=== PATIENT | female | born 1960 | race American Indian/Alaskan Native ===

== ENCOUNTER 2017-10-22 11:28 | Emergency (ER) | payer OTHER, MEDICARE ==
[2017-10-22 20:51] VITALS: BP 171/109
[2017-10-22] MEDS ORDERED: TORADOL IM ONE (21:33)
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
[2017-10-22] MEDS ORDERED: TORADOL ONE (21:58)
== END 2017-10-22 22:09 | disposition home or self-care (01) ==
LOC: ED 11:28
DX: S39.012A Strain of muscle, fascia and tendon of lower back, initial encounter (principal); S16.1XXA Strain of muscle, fascia and tendon at neck level, initial encounter; I10 Essential (primary) hypertension; R56.9 Unspecified convulsions; Z88.0 Allergy status to penicillin; F17.200 Nicotine dependence, unspecified, uncomplicated; V43.52XA Car driver injured in collision with other type car in traffic accident, initial encounter; Y93.89 Activity, other specified; Y92.89 Other specified places as the place of occurrence of the external cause; Y99.8 Other external cause status
CPT/HCPCS: 96372; 99282; J1885

== ENCOUNTER 2018-05-16 10:40 | Emergency (ER) | payer MEDICARE ==
[2018-05-16 13:09] LABS: Basophils # (Auto) 0.1 K/mm3 (0.0-0.1); Basophils % (Auto) 0.6 % (0.0-1.8); Eosinophils # (Auto) 0.3 K/mm3 (0.0-0.4); Eosinophils % (Auto) 2.3 % (0.0-4.3); Hematocrit 45.2 % (30.3-42.9); Hemoglobin 15.2 gm/dl (10.1-14.3); Lymphocytes # (Auto) 3.1 K/mm3 (1.2-5.4); Mean Corpuscular HGB Conc 34 % (30-34); Mean Corpuscular Hemoglobin 30 pg (28-32); Mean Corpuscular Volume 89 fl (79-97); Monocytes % (Auto) 8.9 % (0.0-7.3); Platelet Count 203 K/mm3 (140-440); Red Blood Count 5.08 M/mm3 (3.65-5.03)
[2018-05-16 13:43] LABS: BUN/Creatinine Ratio 13; Blood Urea Nitrogen 10 mg/dL (7-17); Calcium 10.2 mg/dL (8.4-10.2); Hemolysis Index 3
[2018-05-16] MEDS ORDERED: TORADOL IM ONE (14:53)
[2018-05-16] MEDS ORDERED: MUCINEX ER PO ONE (14:54)
[2018-05-16] MEDS ORDERED: NORCO 5/325 PO ONE (14:54)
[2018-05-16] MEDS ORDERED: TESSALON PERLES PO ONE (14:54)
[2018-05-16] MEDS ORDERED: ZITHROMAX PO ONE (14:54)
[2018-05-16 17:20] VITALS: BP 117/67
--- NOTE | 2018-05-16 17:27 | Emergency Department Report ---
HPI - General Chief Complaint: Chest Pain Time Seen by Provider: 05/16/18 13:55 - HPI HPI: The patient is a 57-year-old female who presents for evaluation of chest pain. The patient reports chest pain with coughing for the past 5 days, aching quality , again exacerbated with coughing, relieved at rest, moderate in severity, right -sided. She has experienced a nocturnal cough for the same duration. She admits to tobacco use as well. The patient denies fever, neck pain, parasthesias , dyspnea, hemoptysis, palpitations, dizziness, syncope, unilateral leg swelling, calf muscle pain. Patient also denies cocaine or other stimulant use , history of DVT or PE, recent immobilization, or history of cancer. ED Past Medical Hx - Past Medical History Previous Medical History?: Yes Hx Hypertension: Yes Hx Seizures: Yes Additional medical history: sacroiliac joint disease, arthritis in hands and knees - Surgical History Past Surgical History?: Yes Additional Surgical History: fibroid tumors removed - Social History Smoking Status: Current Every Day Smoker Substance Use Type: None - Medications Home Medications: Home Medications Medication Instructions Recorded Confirmed Last Taken Type Topiramate [Topamax] 25 mg PO BID 08/26/13 10/22/17 1 Day Ago History ~10/21/17 Carvedilol [Coreg] 1 tab PO DAILY 07/03/14 10/22/17 1 Day Ago History ~10/21/17 HYDROcodone/APAP 10-325 [[place] 1 each PO Q6HR PRN #20 tablet 07/03/14 Unknown Rx 10/325] Metoprolol [Lopressor TAB] 07/03/14 07/03/14 Unknown History Amlodipine Besylate [Norvasc] 10 mg PO DAILY 10/22/17 10/22/17 1 Day Ago History ~10/21/17 Cyclobenzaprine [Flexeril] 10 mg PO QHS PRN #20 tablet 10/22/17 Unknown Rx Naproxen [Naprosyn TAB] 500 mg PO BID PRN #30 tablet 10/22/17 Unknown Rx ALBUTEROL Inhaler [ProAir HFA 2 puff IH QID PRN #1 inhalation 05/16/18 Unknown Rx Inhaler] Azithromycin [Zithromax Z-HARRISON] 250 mg PO QDAY #6 tablet 05/16/18 Unknown Rx Benzonatate [Tessalon Perles] 100 mg PO Q8HR #30 capsule 05/16/18 Unknown Rx guaiFENesin [Mucinex] 600 mg PO Q12HR #20 tab.er.12h 05/16/18 Unknown Rx traMADol [Ultram 50 MG tab] 50 mg PO Q6HR PRN #15 tablet 05/16/18 Unknown Rx ED Review of Systems ROS: Stated complaint: CHEST PAIN Other details as noted in HPI Constitutional: denies: fever ENT: denies: throat or neck pain Respiratory: reports cough denies: shortness of breath Cardiovascular: reports: chest pain Endocrine: denies unexplained weight loss or gain Gastrointestinal: denies: abdominal pain, nausea Genitourinary: denies: dysuria Musculoskeletal: denies: leg swelling Skin: denies: rash Neurological: denies: headache Hematological/Lymphatic: denies: easy bleeding or easy bruising Psych: denies sadness or hopelessness Physical Exam - Physical Exam Vital Signs: Vital Signs 05/16/18 05/16/18 05/16/18 11:05 13:48 13:57 Temperature 98.6 F Pulse Rate 89 Respiratory 18 18 Rate Blood Pressure 154/103 Blood Pressure [Right] O2 Sat by Pulse 95 98 100 Oximetry 05/16/18 05/16/18 14:02 15:13 Temperature 98.8 F Pulse Rate 76 Respiratory 22 18 Rate Blood Pressure Blood Pressure 134/79 [Right] O2 Sat by Pulse 97 Oximetry Physical Exam: \ General: well-nourished, well-developed, no acute distress Head: Normocephalic, atraumatic Eyes: normal sclera ENT: Mucous membranes are pink and moist Neck: trachea midline, neck supple, No neck stiffness, no cervical adenopathy Respiratory: Breath sounds equal bilaterally, no wheezing, rales, or rhonchi Cardio: S1 and S2 present, no murmurs, rubs, gallops, capillary refill is brisk Abdomen: Normoactive bowel sounds, soft abdomen, no rigidity, no guarding or rebound tenderness Chest WALL/Back: No tenderness to palpation of the chest wall, no CVA tenderness with percussion Musc: No pitting edema Skin: No rash Neuro: no facial drooping, normal speech Psych: Normal affect ED Course Vital Signs 05/16/18 05/16/18 05/16/18 11:05 13:48 13:57 Temperature 98.6 F Pulse Rate 89 Respiratory 18 18 Rate Blood Pressure 154/103 Blood Pressure [Right] O2 Sat by Pulse 95 98 100 Oximetry 05/16/18 05/16/18 14:02 15:13 Temperature 98.8 F Pulse Rate 76 Respiratory 22 18 Rate Blood Pressure Blood Pressure 134/79 [Right] O2 Sat by Pulse 97 Oximetry ED Medical Decision Making - Lab Data Result diagrams: 05/16/18 12:39 05/16/18 12:39 - Medical Decision Making The patient was seen and examined by myself. The patient is placed on a fishing accessories maker and continuous pulse ox. On initial evaluation, the patient was found to be in no distress. EKG was negative for findings suggestive of acute cardiac infarct. Labs and imaging are obtained. The patient was given pain medicine and call medicine. Chest x-ray is negative for pneumothorax, focal consolidation, pulmonary vascular congestion, pleural effusion, or other obvious acute cardiopulmonary disease process. Lab results were non-concerning including levels of troponin, WBC, hemoglobin, hematocrit, electrolytes, renal function. The patient was reevaluated and reported that their symptoms were markedly improved. As the patient has a SHAYLA risk score less than 2, and a well's score less than 2, the patient is at low risk of ACS or pulmonary emboli etiology of their symptoms. The patient is stable for discharge with outpatient follow-up. The patient is given follow-up and return instructions. The patient expressed understanding and agreed with the plan. The patient is discharged in stable condition. Critical care attestation.: If time is entered above; I have spent that time in minutes in the direct care of this critically ill patient, excluding procedure time. ED Disposition Clinical Impression: Acute chest wall pain Acute bronchitis Qualifiers: Bronchitis organism: unspecified organism Qualified Code(s): J20.9 - Acute bronchitis, unspecified Disposition: DC-01 TO HOME OR SELFCARE Is pt being admited?: No Does the pt Need Aspirin: No Condition: Stable Instructions: Chest Pain (ED), Acute Bronchitis (ED) Prescriptions: ALBUTEROL Inhaler [ProAir HFA Inhaler] 2 puff IH QID PRN #1 inhalation PRN Reason: Shortness Of Breath Azithromycin [Zithromax Z-HARRISON] 250 mg PO QDAY #6 tablet Benzonatate [Tessalon Perles] 100 mg PO Q8HR #30 capsule guaiFENesin [Mucinex] 600 mg PO Q12HR #20 tab.er.12h traMADol [Ultram 50 MG tab] 50 mg PO Q6HR PRN #15 tablet PRN Reason: Pain Referrals: PRIMARY CARE, [Primary Care Provider] - 3-5 Days Time of Disposition: 17:17
--- NOTE | 2018-05-16 19:23 | XRay Report ---
FINAL REPORT EXAM: XR CHEST 1V AP HISTORY: cough TECHNIQUE: Frontal portable view of the chest Comparison: None FINDINGS: There is prominence of the interstitial markings in both lungs with peribronchial thickening, acute versus chronic. There is platelike atelectasis or scar formation in the right lower lung field. There is no evidence of focal infiltrate, pneumothorax or pleural fluid collection. The cardiac silhouette appears to be enlarged. The thoracic aorta is mildly tortuous with atherosclerotic vascular calcification. The bony structures are unremarkable. Visualization detail of the thoracic spine is limited. IMPRESSION: 1. Prominence of the interstitial markings in both lungs with peribronchial thickening, acute versus chronic. 2. Enlarged cardiac silhouette.
== END 2018-05-16 18:52 | disposition home or self-care (01) ==
LOC: ED 10:40
DX: J20.9 Acute bronchitis, unspecified (principal); R07.89 Other chest pain; I10 Essential (primary) hypertension; M19.90 Unspecified osteoarthritis, unspecified site; F17.200 Nicotine dependence, unspecified, uncomplicated; Z79.899 Other long term (current) drug therapy
CPT/HCPCS: 36415; 71045; 80048; 84484; 85025; 93005; 93010; 96372; 99284; J1885